=== PATIENT | male | born 1950 | race Caucasian/White ===

== ENCOUNTER → 2016-12-22 | Outpatient (CLI) | payer OTHER | LOC: BHFA 14:15 | PROVIDERS: ATTEND Internal Medicine Cardiovascular Disease | DX: I25.810 Atherosclerosis of coronary artery bypass graft(s) without angina pectoris (principal); I10 Essential (primary) hypertension; E78.5 Hyperlipidemia, unspecified ==

== ENCOUNTER → 2017-01-08 | Outpatient (CLI) | payer OTHER | LOC: BHCLAF 14:45 | PROVIDERS: ATTEND Internal Medicine Cardiovascular Disease | DX: I25.10 Atherosclerotic heart disease of native coronary artery without angina pectoris (principal) | CPT/HCPCS: 93306-PO ==

== ENCOUNTER → 2018-06-17 | Outpatient (CLI) | payer OTHER | LOC: BHFA 10:00 | PROVIDERS: ATTEND Internal Medicine Cardiovascular Disease | DX: I25.810 Atherosclerosis of coronary artery bypass graft(s) without angina pectoris (principal); I10 Essential (primary) hypertension; I71.2 Thoracic aortic aneurysm, without rupture ==

== ENCOUNTER → 2018-09-10 | Outpatient (CLI) | payer OTHER | LOC: BHLMT 14:15 | PROVIDERS: ATTEND Internal Medicine Cardiovascular Disease | DX: I48.0 Paroxysmal atrial fibrillation (principal); I25.10 Atherosclerotic heart disease of native coronary artery without angina pectoris; R06.02 Shortness of breath | CPT/HCPCS: 93005-PO ==

== ENCOUNTER → 2018-09-16 | Outpatient (CLI) | payer OTHER | LOC: BHLMT 10:45 | PROVIDERS: ATTEND Internal Medicine Cardiovascular Disease | DX: I48.91 Unspecified atrial fibrillation (principal); I25.810 Atherosclerosis of coronary artery bypass graft(s) without angina pectoris; I10 Essential (primary) hypertension | CPT/HCPCS: 93306-PO ==

== ENCOUNTER → 2018-09-17 | Outpatient (CLI) | payer OTHER | LOC: BHFA 11:00 | PROVIDERS: ATTEND Internal Medicine Cardiovascular Disease | DX: R06.02 Shortness of breath (principal); I48.0 Paroxysmal atrial fibrillation; I25.10 Atherosclerotic heart disease of native coronary artery without angina pectoris ==

== ENCOUNTER → 2018-09-20 | Outpatient (CLI) | payer OTHER | LOC: BHFA 09:30 | PROVIDERS: ATTEND Internal Medicine Cardiovascular Disease | DX: I48.0 Paroxysmal atrial fibrillation (principal); I25.10 Atherosclerotic heart disease of native coronary artery without angina pectoris; R06.02 Shortness of breath | CPT/HCPCS: 78452; 93017; A9500; J2785 ==

== ENCOUNTER 2018-11-07 12:40 | Day surgery (SDC) | payer OTHER ==
[2018-11-07] MEDS ORDERED: BACITRACIN IRRIGATION/NS 50,000 UNITS/1,000 ML BTL IRR ONE (12:53)
[2018-11-07] MEDS ORDERED: NS 1,000 ML IV ONE ×2 (12:53)
[2018-11-07] MEDS ORDERED: ceFAZolin 2 GM/DEXTROSE 100 ML IV ONE (12:53)
[2018-11-07 13:28] LABS: PLATELET COUNT 242 10^3/uL (150-400)
[2018-11-07 13:47] LABS: INR 1.02 (0.83-1.16)
--- NOTE | 2018-11-07 14:41 | PDANEPAE ---
ANE History of Present Illness Non sustained VT ANE Past Medical History - Cardiovascular History Hx Hypertension: Yes Hx Arrhythmias: No Hx Coronary Artery / Peripheral Vascular Disease: Yes Hx CHF / Valvular Disease: No Cardiovascular History Comment: mi , stent placed. previous stents placed -. heart cath last Sun, no stents. no cp - Pulmonary History Hx COPD: No Hx Asthma/Reactive Airway Disease: No Hx Recent Upper Respiratory Infection: No Hx Oxygen in Use at Home: No Hx Sleep Apnea: Yes Pulmonary History Comment: denies sob w stairs - Neurologic History Hx Cerebrovascular Accident: No Hx Seizures: No Hx Dementia: No - Endocrine History Hx Diabetes: No Hypothyroid: No Hyperthyroid: No Obesity: moderate - Renal History Hx Renal Disorders: No - Liver History Hx Hepatic Disorders: No - Neurological & Psychiatric Hx Hx Neurological and Psychiatric Disorders: No - Cancer History Hx Cancer: No - Congenital Disorder History Hx Congenital Disorders: No - GI History Hx Gastrointestinal Disorders: No - Other Health History Other Health History: dermatitis. bridge upper. plavix stopped, ld 07-08-14 - Chronic Pain History Chronic Pain: Yes (r hip) - Surgical History Prior Surgeries: tonsils. herat cath 07-08-14. angioplasties several, last 2013 ANE Review of Systems Review of Systems: - Exercise capacity METS (RN): 4 METS ANE Patient History - Allergies Allergies/Adverse Reactions: No Known Allergies Allergy (Verified 11/05/18 10:23) - Home Medications Home Medications: Apixaban [Eliquis] 5 mg PO BID 11/05/18 [Last Taken 11/04/18] Ezetimibe [Zetia 10 MG (*)] 10 mg PO DAILY 11/05/18 [Last Taken 11/06/18] Metoprolol Tartrate [Lopressor 25 mg (*)] 25 mg PO BID 11/05/18 [Last Taken 08/24] Rosuvastatin Calcium [Crestor 40mg (*)] 40 mg PO DAILY 11/05/18 [Last Taken 10/22] Sildenafil Citrate [Viagra] 25 mg PO AD PRN 11/05/18 [Last Taken Unknown] amLODIPine BESYLATE [Norvasc 5 mg (*)] 5 mg PO DAILY 11/05/18 [Last Taken ] - NPO status NPO Status: no food or drink >8 hours - Anes Hx Anes Hx: no prior problems - Smoking Hx Smoking Status: Former smoker - Alcohol Use Alcohol Use: Rarely - Family Anes Hx Family Anes Hx: none Family Hx Anesthesia Complications: none ANE Labs/Vital Signs - Labs Result Diagrams: 11/07/18 13:05 11/07/18 13:05 - Vital Signs Height: 190.5 cm Weight: 127.006 kg ANE Physical Exam - Airway Neck exam: FROM Mallampati Score: Class 2 Mouth exam: normal dental/mouth exam, poor dentition - Pulmonary Pulmonary: no respiratory distress, no rales or rhonchi - Cardiovascular Cardiovascular: regular rate and rhythym, no murmur, rub, or gallop - ASA Status ASA Status: III ANE Anesthesia Plan Anesthesia Plan: GA w LMA Total IV Anesthesia: Yes
--- NOTE | 2018-11-07 14:52 | PDGENHP ---
History & Physical Chief Complaint: nonsustained VT History of Present Illness: CAD, ischemic cardiac disease with prior inferior infarct (preserved LVEF), with incidentally noted recurrent nonsustained VT on ambulatory monitoring. Relevant Physical Exam: A+Ox4, RR/NR, no MRG, CTAB, no focal deficits Cardiorespiratory Assessment: nonsustained VT in a structurally abnormal heart - > EPS for VT inducibility followed by possible ICD implantation if inducible.
[2018-11-07] MEDS ORDERED: PROPOFOL/EMULSION 500 MG/50 ML BOTTLE IV ONE ×2 (14:55)
[2018-11-07] MEDS ORDERED: PHENYLEPHRINE HCL 100 MCG/ML SYR ONE (15:28)
[2018-11-07] MEDS ORDERED: HYDROCODONE/APAP 5/325 TAB PO PRN (16:04)
[2018-11-07] MEDS ORDERED: ACETAMINOPHEN 325 MG TAB PO PRN (16:04)
[2018-11-07] MEDS ORDERED: ONDANSETRON 4 MG/2 ML VIAL IVP PRN (16:17)
[2018-11-07] MEDS ORDERED: fentaNYL 100 MCG/2 ML INJ IVP PRN (16:17)
[2018-11-07] MEDS ORDERED: NALOXONE HCL 0.4 MG/ML INJ IVP PRN (16:17)
--- NOTE | 2018-11-07 16:21 | POSTANESTH ---
Post Anesthetic Evaluation Cardiovascular Status: Normal, Stable Respiratory Status: Normal, Stable Level of Consciousness/Mental Status: Can Participate in Eval Pain Control: Adequate, Prn Tx Ordered Nausea/Vomiting Control: Adequate, Prn Tx Ordered Complications Possibly Related to Anesthesia: None Noted
--- NOTE | 2018-11-07 16:23 | EPPROC ---
Electrophysiology Procedure Note: Date: 11/07/2018 Cellar Packer: Leroy Payne MD Procedures performed: Comprehensive EP study with induction of arrhythmia -[id number] Indications: 67-year-old male with coronary artery disease, history of inferior CA, relatively preserved LVEF. Incidentally noted polymorphic nonsustained VT on ambulatory monitoring. He is referred for risk stratification EP study plus/minus implantation of ICD. Techniques: Following informed consent, the patient was brought to the EP lab in a fasting nonsedated state, in sinus rhythm. General anesthesia was provided by the anesthesiology service. IV antibiotics were administered. Bilateral groins were prepped and draped in usual sterile fashion. 1% lidocaine was infiltrated over the right femoral vessels, and the right femoral vein was accessed x1 under ultrasound guidance with placement of a 5 [place] short sheath. A quad catheter was inserted and advanced under fluoro guidance first to RV apical position, then to RV outflow tract position. Ventricular programmed stimulation was performed using the [place] protocol. From RVa: VERP 600/240ms, 400/220ms, 350/210ms From RVOT: VERP 600/220ms, 400/210ms, 350/200ms During ventricular programmed stimulation from the RV apical position at 600/280 /200/200/200ms, sustained polymorphic ventricular tachycardia was induced. The patient was pulseless. The rhythm was terminated with a single 200 joule biphasic unsynchronized transcutaneous shock. After completion of the protocol, the quad catheter was removed. The access sheath was aspirated and flushed, then removed. Manual pressure was held until hemostasis. The patient tolerated the procedure well. EBL: Minimal Complications: None Assessment: Single episode of inducible sustained polymorphic ventricular tachycardia, hemodynamically unstable (not meeting diagnostic criteria for ICD candidacy) Plan: Bedrest 3 hr postprocedure Groin precautions for 10 days Resume home medication regimen, most notable for Eliquis and metoprolol Follow up in EP Clinic to discuss management of atrial fibrillation Patient Problems: Problems Problem Status Onset CAD (coronary artery disease) Acute
--- NOTE | 2018-11-08 09:49 | CPEKG ---
Test Reason : OPEN Blood Pressure : / mmHG Vent. Rate : 089 BPM Atrial Rate : 088 BPM P-R Int : 190 ms QRS Dur : 115 ms QT Int : 380 ms P-R-T Axes : 044 025 006 degrees QTc Int : 463 ms Sinus rhythm Nonspecific intraventricular conduction delay Inferior infarct, old Confirmed by Wang Urbano ([id number]) on 11/08/2018 9:48:36 AM Referred By: Bernardo Lizarraga Confirmed By:Wang Urbano
== END 2018-11-07 19:11 | disposition home or self-care (01) ==
LOC: FSGY 12:40 → FCATH 19:11
PROVIDERS: ATTEND Internal Medicine Cardiovascular Disease
PROC: 5A1213Z Performance of Cardiac Pacing, Intermittent (ICD-10-PCS; principal; 2018-11-07)
PROC: B244ZZZ Ultrasonography of Right Heart (ICD-10-PCS; principal; 2018-11-07)
PROC: 4A023FZ Measurement of Cardiac Rhythm, Percutaneous Approach (ICD-10-PCS; principal; 2018-11-07)
PROC: 02HK3MZ Insertion of Cardiac Lead into Right Ventricle, Percutaneous Approach (ICD-10-PCS; principal; 2018-11-07)
DX: I48.0 Paroxysmal atrial fibrillation (principal); I47.2 Ventricular tachycardia; Z79.01 Long term (current) use of anticoagulants; I25.10 Atherosclerotic heart disease of native coronary artery without angina pectoris; I25.2 Old myocardial infarction; I10 Essential (primary) hypertension; E78.5 Hyperlipidemia, unspecified; Z95.5 Presence of coronary angioplasty implant and graft
CPT/HCPCS: 93005; 93620; C1730; J0690; J1644; J2370; J2704